=== PATIENT | female | born 1980 | race Caucasian/White ===

== ENCOUNTER 2016-10-10 17:26 | Emergency (ER) | payer OTHER ==
[~2016-10-10] VITALS: Ht 160 cm; Wt 99.0 kg
[2016-10-10 17:30] VITALS: PULSE 76; RESP 16; TEMP 98.5; O2SAT 98
[2016-10-10 18:22] LABS: BLOOD, URINE LARGE (NEG); GLUCOSE,URINE NEG (NEG); KETONE, URINE NEG (NEG); NITRITE,URINE NEG (NEG)
[2016-10-10] MEDS ORDERED: SODIUM CHLOR 0.9% 1000 ML INJ 1,000 ML IV SCH (18:46)
[2016-10-10 18:51] LABS: COMMENT (UR) CULT NOT INDICATED; CULTURE IF INDICATED CULT NOT INDICATED; METHOD OF COLLECTION VOIDED; SQUAMOUS EPITHELIAL CELL URINE 0-5 /hpf (0-5); URINE COLOR STRAW (YELLW/STRAW); WBC, URINE 0-2 /hpf (0-5)
[2016-10-10] MEDS ORDERED: ONDANSETRON HCL 4 MG/2 ML VIAL IVP ONE (19:00)
[2016-10-10] MEDS ORDERED: SODIUM CHLORIDE 0.9% FLUSH 5 ML FLUSH IVF PRN (19:00)
[2016-10-10] MEDS ORDERED: KETOROLAC TROMETHAMINE 30 MG/ML (IVP) VIAL IVP ONE (19:00)
[2016-10-10 19:20] LABS: AUTOMATED NEUTROPHIL # 6.1 TH/MM3 (1.8-7.7); BASOPHIL % 0.5 % (0.0-2.0); EOSINOPHIL # 0.1 TH/MM3 (0-0.4); EOSINOPHIL % 0.7 % (0.0-4.0); HEMATOCRIT 41.8 % (35.0-46.0); HEMO FLAGS DIFF FINAL; LYMPH % 22.3 % (9.0-44.0); MEAN CELL VOLUME 89.8 FL (80.0-100.0); MEAN CORPUSCULAR HEMOGLOBIN 30.7 PG (27.0-34.0); MEAN CORPUSCULAR HGB CONC 34.2 % (32.0-36.0); MONO % 8.2 % (0.0-8.0); NEUT % 68.3 % (16.0-70.0); PLATELET COUNT 271 TH/MM3 (150-450); RED BLOOD COUNT 4.65 MIL/MM3 (4.00-5.30); RED CELL DISTRIBUTION WIDTH 12.1 % (11.6-17.2); WHITE BLOOD COUNT 8.9 TH/MM3 (4.0-11.0)
[2016-10-10 19:34] LABS: CHLORIDE 105 MEQ/L (98-107); POTASSIUM 3.4 MEQ/L (3.5-5.1); SODIUM (NA) 141 MEQ/L (136-145)
[2016-10-10 19:37] LABS: ANION GAP 8 MEQ/L (5-15); BICARBONATE 27.9 MEQ/L (21.0-32.0)
[2016-10-10 19:38] LABS: BLOOD UREA NITROGEN 8 MG/DL (7-18)
[2016-10-10 19:40] LABS: ALT (GPT) 37 U/L (10-53); AST (GOT) 17 U/L (15-37)
[2016-10-10 19:41] LABS: GLOMERULAR FILTRATION RATE 76 ML/MIN (>89)
[2016-10-10 19:42] LABS: TOTAL BILIRUBIN ADULT 0.5 MG/DL (0.2-1.0)
[2016-10-10 19:43] LABS: ALKALINE PHOSPHATASE 57 U/L (45-117)
[2016-10-10] MEDS ORDERED: MORPHINE SULFATE 8 MG/ML INJ IV PUSH ONE (20:15)
[2016-10-10 20:45] VITALS: BP 144/77; PULSE 84; RESP 16; O2SAT 99
[2016-10-10] MEDS ORDERED: ZOFR4TAB3 SL (21:10)
[2016-10-10] MEDS ORDERED: HYDR-3366 PO (21:10)
[2016-10-10] MEDS ORDERED: TAMS5CAP PO (21:10)
--- NOTE | 2016-10-10 21:10 | PD ---
HPI Chief Complaint: Flank/Kidney Pain Time Seen by Provider: 18:40 Travel History International Travel<30 days: No Contact w/Intl Traveler<30days: No Traveled to known affect area: No History of Present Illness HPI Patient 36-year-old female presents with right flank pain radiating to her right lower quadrant as well as right groin. Patient states pain has been coming and going since yesterday not associated with fever. States mild dysuria. Denies any vaginal bleeding vaginal discharge. Endorses mild nausea without vomiting. States she has a history of kidney stones this. Her similar. Has tried ibuprofen at home without any significant relief. Denies ever having a kidney stone removed by surgical procedure before. PFSH Past Medical History Diminished Hearing: No Tetanus Vaccination: Unknown Influenza Vaccination: No ?: Not Tubal Ligation: Yes Past Surgical History Section: Yes Cholecystectomy: Yes Social History Alcohol Use: Yes (soc) Tobacco Use: Yes (10/07 PPD) Substance Use: No Allergies-Medications (Allergen,Severity, Reaction): Coded Allergies: Benadryl (Verified Allergy, Unknown, 10/10/16) Penicillin (Verified Allergy, Unknown, 10/10/16) Reported Meds & Prescriptions Reported Meds & Active Scripts Active Flomax (Tamsulosin HCl) 0.4 Mg Cap 0.4 Mg PO HS Zofran Odt (Ondansetron Odt) 4 Mg Tab 4 Mg SL Q8HR PRN Sprague (Hydrocodone-Acetaminophen) 10-325 Mg Tab 1 Tab PO Q6H PRN Review of Systems Except as stated in HPI: all other systems reviewed are Neg Physical Exam Narrative GENERAL: Well-developed well-nourished appears mildly uncomfortable but nontoxic. SKIN: Warm and dry. HEAD: Atraumatic. Normocephalic. EYES: Pupils equal and round. No scleral icterus. No injection or drainage. ENT: No nasal bleeding or discharge. Mucous membranes pink and moist. NECK: Trachea midline. No JVD. CARDIOVASCULAR: Regular rate and rhythm. No murmur appreciated. RESPIRATORY: No accessory muscle use. Clear to auscultation. Breath sounds equal bilaterally. GASTROINTESTINAL: Abdomen soft, non-tender, nondistended. Hepatic and splenic margins not palpable. No tenderness at McBurney's point. Luna sign negative. CVA testing on the left produces tenderness on the right. CVA testing on the right is deferred at this time. Patient offered gynecological exam declined. MUSCULOSKELETAL: No obvious deformities. No clubbing. No cyanosis. No edema. NEUROLOGICAL: Awake and alert. No obvious cranial nerve deficits. Motor grossly within normal limits. Normal speech. PSYCHIATRIC: Appropriate mood and affect; insight and judgment normal. Data Data Last Documented VS Vital Signs Date Time Temp Pulse Resp B/P Pulse Ox O2 Delivery O2 Flow Rate FiO2 10/10/16 21:33 74 16 147/72 100 10/10/16 20:45 Room Air 10/10/16 17:30 98.5 Orders Urinalysis - C+S If Indicated (10/10/16 17:55) Complete Blood Count With Diff (10/10/16 18:46) Comprehensive Metabolic Panel (10/10/16 18:46) Iv Access Insert/Monitor (10/10/16 18:46) Ecg Monitoring (10/10/16 18:46) Oximetry (10/10/16 18:46) Ondansetron Inj (Zofran Inj) (10/10/16 19:00) Sodium Chlor 0.9% 1000 Ml Inj (Ns 1000 M (10/10/16 18:46) Sodium Chloride 0.9% Flush (Ns Flush) (10/10/16 19:00) Ketorolac Inj (Toradol Inj) (10/10/16 19:00) Ed Poc Ultrasound (10/10/16 ) Ed Urine Pregnancytest Poc (10/10/16 20:02) Morphine Inj (Morphine Inj) (10/10/16 20:15) Labs Laboratory Tests Test 10/10/16 10/10/16 17:30 19:00 Urine Collection Type VOIDED Urine Color STRAW Urine Turbidity CLEAR Urine pH 6.0 Urine Specific [place] 1.010 Urine Protein NEG mg/dL Urine Glucose (UA) NEG mg/dL Urine Ketones NEG mg/dL Urine Occult Blood LARGE Urine Nitrite NEG Urine Bilirubin NEG Urine Leukocyte Esterase NEG Urine WBC 0-2 /hpf Urine Squamous Epithelial 0-5 /hpf Cells Microscopic Urinalysis Comment CULT NOT INDICATED White Blood Count 8.9 TH/MM3 Red Blood Count 4.65 MIL/MM3 Hemoglobin 14.3 GM/DL Hematocrit 41.8 % Mean Corpuscular Volume 89.8 FL Mean Corpuscular Hemoglobin 30.7 PG Mean Corpuscular Hemoglobin 34.2 % Concent Red Cell Distribution Width 12.1 % Platelet Count 271 TH/MM3 Mean Platelet Volume 8.1 FL Neutrophils (%) (Auto) 68.3 % Lymphocytes (%) (Auto) 22.3 % Monocytes (%) (Auto) 8.2 % Eosinophils (%) (Auto) 0.7 % Basophils (%) (Auto) 0.5 % Neutrophils # (Auto) 6.1 TH/MM3 Lymphocytes # (Auto) 2.0 TH/MM3 Monocytes # (Auto) 0.7 TH/MM3 Eosinophils # (Auto) 0.1 TH/MM3 Basophils # (Auto) 0.0 TH/MM3 CBC Comment DIFF FINAL Differential Comment Sodium Level 141 MEQ/L Potassium Level 3.4 MEQ/L Chloride Level 105 MEQ/L Carbon Dioxide Level 27.9 MEQ/L Anion Gap 8 MEQ/L Blood Urea Nitrogen 8 MG/DL Creatinine 0.86 MG/DL Estimat Glomerular Filtration 76 ML/MIN Rate Random Glucose 96 MG/DL Calcium Level 9.3 MG/DL Total Bilirubin 0.5 MG/DL Aspartate Amino Transf 17 U/L (AST/SGOT) Alanine Aminotransferase 37 U/L (ALT/SGPT) Alkaline Phosphatase 57 U/L Total Protein 7.6 GM/DL Albumin 4.1 GM/DL [facility] Medical Decision Making Medical Screen Exam Complete: Yes Emergency Medical Condition: Yes Differential Diagnosis Recurrent kidney stone, a KI, dysuria, UTI, cystitis, appendicitis highly unlikely by clinical exam. Narrative Course Patient with history of kidney stones and renal colic on right side. Discussed risks of repeat CT's and opts to defer at this time. No ISATU, no UTI. Minimal hydronephrosis. Felling better after Toradol blood pain returning. Morphine was added. After meds she is feeling much better. stable for discharge. Discussed symptom management and management home pain medication prescription as well as Flomax ordered. Follow-up with urology when necessary. Discussed return to ED criteria. Diagnosis Primary Impression: Renal colic on right side Referrals: Mic Stanford MD Med/Other Pt SpecificInfo: Prescription(s) given Scripts Tamsulosin (Flomax)0.4 Mg Cap0.4 Mg PO HS #30 CAP Ref 0 Prov:Marco Cristobal MD 10/10/16 Ondansetron Odt (Zofran Odt)4 Mg Tab4 Mg SL Q8HR PRN (Nausea/Vomiting) #30 TAB Ref 0 Prov:Marco Cristobal MD 10/10/16 Hydrocodone-Acetaminophen (Sprague)10-325 Mg Tab1 Tab PO Q6H PRN (PAIN) #12 TAB Ref 0 Prov:Marco Cristobal MD 10/10/16 Disposition: 01 DISCHARGE HOME Condition: Stable Marco Cristobal MD Oct 10, 2016 21:10
[2016-10-10 21:33] VITALS: BP 147/72
== END 2016-10-10 21:33 | disposition home or self-care (01) ==
LOC: PHED 17:26
DX: N23 Unspecified renal colic (principal); R30.0 Dysuria; F17.210 Nicotine dependence, cigarettes, uncomplicated; Z87.442 Personal history of urinary calculi
CPT/HCPCS: 80053; 81001; 85025; 96361; 96374; 96375; 99284; J1885; J2270; J2405; J7030

== ENCOUNTER 2017-05-06 09:59 | Emergency (ER) | payer OTHER ==
[~2017-05-06] VITALS: Ht 160 cm; Wt 96.0 kg
[~2017-05-06 09:59] MED LIST: HYDR-3366 PO; TAMS5CAP PO; ZOFR4TAB3 SL
[2017-05-06 10:03] VITALS: BP 237/116; PULSE 74; RESP 16; TEMP 98.2; O2SAT 98
[2017-05-06] MEDS ORDERED: ACETAMIN 325 MG/BUTALBITAL 50 MG/CAFFEINE 40 MG TAB PO ONE (10:30)
[2017-05-06] MEDS ORDERED: PROCHLORPERAZINE INJ 10 MG/2 ML VIAL IV PUSH ONE (10:30)
[2017-05-06 10:43] LABS: AUTOMATED NEUTROPHIL # 3.2 TH/MM3 (1.8-7.7); BASOPHIL # 0.1 TH/MM3 (0-0.2); BASOPHIL % 0.8 % (0.0-2.0); EOSINOPHIL # 0.1 TH/MM3 (0-0.4); EOSINOPHIL % 2.3 % (0.0-4.0); HEMATOCRIT 42.6 % (35.0-46.0); HEMO FLAGS DIFF FINAL; LYMPH % 40.2 % (9.0-44.0); LYMPHOCYTE # 2.5 TH/MM3 (1.0-4.8); MEAN CORPUSCULAR HEMOGLOBIN 30.6 PG (27.0-34.0); MONO % 7.1 % (0.0-8.0); NEUT % 49.6 % (16.0-70.0); PLATELET COUNT 249 TH/MM3 (150-450); RED BLOOD COUNT 4.73 MIL/MM3 (4.00-5.30); RED CELL DISTRIBUTION WIDTH 11.4 % (11.6-17.2); WHITE BLOOD COUNT 6.3 TH/MM3 (4.0-11.0)
[2017-05-06 10:54] LABS: CHLORIDE 105 MEQ/L (98-107); SODIUM (NA) 140 MEQ/L (136-145)
[2017-05-06 10:58] LABS: ANION GAP 8 MEQ/L (5-15); BICARBONATE 26.6 MEQ/L (21.0-32.0); BLOOD UREA NITROGEN 10 MG/DL (7-18)
[2017-05-06 11:01] LABS: ALT (GPT) 34 U/L (10-53); AST (GOT) 24 U/L (15-37); GLOMERULAR FILTRATION RATE 85 ML/MIN (>89)
[2017-05-06 11:02] LABS: TOTAL BILIRUBIN ADULT 0.4 MG/DL (0.2-1.0)
[2017-05-06 11:04] LABS: ALKALINE PHOSPHATASE 56 U/L (45-117)
[2017-05-06 11:08] VITALS: BP 177/99; PULSE 69; RESP 18; O2SAT 97
--- NOTE | 2017-05-06 11:57 | PD ---
HPI Chief Complaint: Headache Time Seen by Provider: 10:08 Travel History International Travel<30 days: No Contact w/Intl Traveler<30days: No Traveled to known affect area: No History of Present Illness HPI Patient is a 36-year-old female who comes in complaining of headache with congestion. She says this is going going on since Thursday with fever on and off. She did say she had a fever of 100.5 this morning and took ibuprofen. She says that she has been taking her blood pressure since Thursday and is concerned because it is high. She has a history of high blood pressure, and has not been on medications for the past year. She denies any trauma to her head. She denies any chest pain or shortness of breath. She denies abdominal pain. She occasionally gets some blurry vision with the headaches. She's had some nausea, but no vomiting. PFSH Past Medical History Diminished Hearing: No Hypertension: Yes ?: Not LMP: 03/11/2017 Tubal Ligation: Yes Past Surgical History Section: Yes Cholecystectomy: Yes Social History Alcohol Use: Yes (soc) Tobacco Use: No Substance Use: No Allergies-Medications (Allergen,Severity, Reaction): Coded Allergies: Benadryl (Verified Allergy, Unknown, 05/06/17) Penicillin (Verified Allergy, Unknown, 05/06/17) Reported Meds & Prescriptions Reported Meds & Active Scripts Active No Active Prescriptions or Reported Medications Review of Systems Except as stated in HPI: all other systems reviewed are Neg General / Constitutional: Positive: Fever, No: Chills Eyes: Positive: Blurred Vision HENT: Positive: Headaches, Congestion Cardiovascular: No: Chest Pain or Discomfort Respiratory: No: Shortness of Breath Gastrointestinal: Positive: Nausea, No: Vomiting Genitourinary: No: Dysuria, Flank Pain Musculoskeletal: No: Edema, Pain Skin: No Rash, No Change in Pigmentation Neurologic: No: Weakness, Paresthesia, Sensory Disturbance Physical Exam Narrative GENERAL: Awake and alert, in no acute distress. SKIN: Focused skin assessment warm/dry. HEAD: Atraumatic. Normocephalic. EYES: Pupils equal and round. No scleral icterus. ENT: Mucous membranes pink and moist. NECK: Trachea midline. No JVD. CARDIOVASCULAR: Regular rate and rhythm. No murmur appreciated. RESPIRATORY: No accessory muscle use. Clear to auscultation. Breath sounds equal bilaterally. GASTROINTESTINAL: Abdomen soft, non-tender, nondistended. MUSCULOSKELETAL: No obvious deformities. No clubbing. No cyanosis. No edema. NEUROLOGICAL: Awake and alert. No obvious cranial nerve deficits. Motor grossly within normal limits. Normal speech. Normal cerebellar function testing. Kmfjre-pdrf-qmkhln test is within normal limits. PSYCHIATRIC: Appropriate mood and affect; insight and judgment normal. Data Data Last Documented VS Vital Signs Date Time Temp Pulse Resp B/P Pulse Ox O2 Delivery O2 Flow Rate FiO2 05/06/17 12:06 68 18 190/90 95 05/06/17 10:03 98.2 Orders Iv Access Insert/Monitor (05/06/17 10:24) Complete Blood Count With Diff (05/06/17 10:24) Comprehensive Metabolic Panel (05/06/17 10:24) Troponin I (05/06/17 10:24) Electrocardiogram (05/06/17 ) Ct Brain W/O Iv Contrast(Rout) (05/06/17 ) Prochlorperazine Inj (Compazine Inj) (05/06/17 10:30) Chest, Pa & Lat (05/06/17 ) Rkcl-Ypuyu-Qpur 325-50-40 Mg (Fioricet 3 (05/06/17 10:30) Labs Laboratory Tests Test 05/06/17 10:35 White Blood Count 6.3 TH/MM3 Red Blood Count 4.73 MIL/MM3 Hemoglobin 14.5 GM/DL Hematocrit 42.6 % Mean Corpuscular Volume 90.0 FL Mean Corpuscular Hemoglobin 30.6 PG Mean Corpuscular Hemoglobin 34.0 % Concent Red Cell Distribution Width 11.4 % Platelet Count 249 TH/MM3 Mean Platelet Volume 8.0 FL Neutrophils (%) (Auto) 49.6 % Lymphocytes (%) (Auto) 40.2 % Monocytes (%) (Auto) 7.1 % Eosinophils (%) (Auto) 2.3 % Basophils (%) (Auto) 0.8 % Neutrophils # (Auto) 3.2 TH/MM3 Lymphocytes # (Auto) 2.5 TH/MM3 Monocytes # (Auto) 0.4 TH/MM3 Eosinophils # (Auto) 0.1 TH/MM3 Basophils # (Auto) 0.1 TH/MM3 CBC Comment DIFF FINAL Differential Comment Sodium Level 140 MEQ/L Potassium Level 4.0 MEQ/L Chloride Level 105 MEQ/L Carbon Dioxide Level 26.6 MEQ/L Anion Gap 8 MEQ/L Blood Urea Nitrogen 10 MG/DL Creatinine 0.78 MG/DL Estimat Glomerular Filtration 85 ML/MIN Rate Random Glucose 116 MG/DL Calcium Level 9.6 MG/DL Total Bilirubin 0.4 MG/DL Aspartate Amino Transf 24 U/L (AST/SGOT) Alanine Aminotransferase 34 U/L (ALT/SGPT) Alkaline Phosphatase 56 U/L Troponin I LESS THAN 0.02 NG/ML Total Protein 8.0 GM/DL Albumin 4.0 GM/DL [facility] Medical Decision Making Medical Screen Exam Complete: Yes Emergency Medical Condition: Yes Medical Record Reviewed: Yes Interpretation(s) ECG shows normal sinus rhythm at 66, no ST elevation or depression. Normal intervals. Differential Diagnosis Tension headache versus viral illness versus hypertensive urgency Narrative Course Patient is a 36-year-old female who comes in complaining of headache, congestion , blood pressure. Exam shows no neurologic abnormalities. IV established, labs sent. Labs show no acute abnormalities. Creatinine is within normal limits. Troponin is negative. Chest x-ray shows no acute abnormalities. CT head shows no acute abnormalities. Patient was given Compazine as well as Fioricet. She says overall she is feeling better. She does have symptoms of akathisia however. She is allergic to Benadryl, but says she is tolerating the symptoms at this time. She'll be discharged with a prescription for Fioricet. She is advised follow- up with her doctor to get back on her blood pressure medications. Advised to return to the ED as needed for any worsening symptoms. Diagnosis Primary Impression: Headache Qualified Code: R51 - Acute nonintractable headache, unspecified headache type Additional Impression: Viral illness Patient Instructions: Acute Headache (ED), General Instructions, Viral Syndrome (ED) Additional Instructions: Take ibuprofen as needed for pain. He can take Fioricet for severe headaches. Make sure he drinks plenty of fluids. Follow-up with her doctor regarding her blood pressure. Return to the emergency department as needed for any worsening symptoms. Scripts Ivbbwqvrne-Xmbxhrlhntfxz-Vrflqrhl (Fioricet)50-300-40 Mg Cap1 Cap PO Q4H PRN ( HEADACHE) #15 CAP Ref 0 Prov:Catherine Tobin MD 05/06/17 Disposition: 01 DISCHARGE HOME Condition: Stable Catherine Tobin MD May 06, 2017 11:57
[2017-05-06 12:06] VITALS: BP 190/90; PULSE 68; RESP 18; O2SAT 95
--- NOTE | 2017-05-06 12:06 | RADRPT ---
EXAM DATE/TIME: 05/06/2017 11:11 [facility] COMPARISON: No previous studies available for comparison. INDICATIONS : Cephalgia. RADIATION DOSE: 65.20 CTDIvol (mGy) MEDICAL HISTORY : Hypertension. SURGICAL HISTORY : Cholecystectomy. Tubal ligation. section. ENCOUNTER: Initial ACUITY: 4 - 6 days PAIN SCALE: 3/10 LOCATION: cranial TECHNIQUE: Multiple contiguous axial images were obtained of the head. Using automated exposure control and adj ustment of the mA and/or kV according to patient size, radiation dose was kept as low as reasonably a chievable to obtain optimal diagnostic quality images. DICOM format image data is available electro nically for review and comparison. FINDINGS: CEREBRUM: The ventricles are normal for age. No evidence of midline shift, mass lesion, hemorrhage or acute in farction. No extra-axial fluid collections are seen. POSTERIOR FOSSA: The cerebellum and brainstem are intact. The 4th ventricle is midline. The cerebellopontine angle i s unremarkable. EXTRACRANIAL: The visualized portion of the orbits is intact. SKULL: The calvaria is intact. No evidence of skull fracture. CONCLUSION: No acute disease. Craig Rivera MD FACR on May 06, 2017 at 12:04 Board Certified Radiologist. This report was verified electronically.
--- NOTE | 2017-05-06 12:26 | RADRPT ---
EXAM DATE/TIME: 05/06/2017 10:50 [facility] COMPARISON: No previous studies available for comparison. INDICATIONS : Cough, congestion, fever, migranes. MEDICAL HISTORY : Hypertension. SURGICAL HISTORY : Tubal ligation. Cholecystectomy. section. ENCOUNTER: Initial ACUITY: 2 days PAIN SCORE: 0/10 LOCATION: chest FINDINGS: PA and lateral views of the chest demonstrate the lungs to be symmetrically aerated without evidence of mass, infiltrate or effusion. The cardiomediastinal contours are unremarkable. Osseous structure s are intact. CONCLUSION: 1. No acute cardiopulmonary disease. Sidney Bishop MD on May 06, 2017 at 12:22 Board Certified Radiologist. This report was verified electronically.
[2017-05-06] MEDS ORDERED: BUTA1CAP PO (12:32)
--- NOTE | 2017-05-07 18:18 | EKG ---
Date Performed: 05/06/2017 Time Performed: 10:33:08 PTAGE: 36 years EKG: Sinus rhythm NORMAL ECG NO PREVIOUS TRACING DOCTOR: Kathryn Quiroz Interpretating Date/Time 05/07/2017 18:18:16
== END 2017-05-06 12:46 | disposition home or self-care (01) ==
LOC: PHED 09:59
DX: R51 Headache (principal); B34.9 Viral infection, unspecified; I10 Essential (primary) hypertension
CPT/HCPCS: 70450; 71020; 80053; 84484; 85025; 93005; 96374; 99285; J0780

== ENCOUNTER 2017-10-02 10:12 | Emergency (ER) | payer OTHER ==
[~2017-10-02] VITALS: Ht 160 cm; Wt 94.0 kg
[~2017-10-02 10:12] MED LIST changes: +BUTA1CAP PO; -HYDR-3366 PO; -TAMS5CAP PO; -ZOFR4TAB3 SL
[2017-10-02 10:13] VITALS: BP 174/100; PULSE 102; RESP 18; TEMP 98.4; O2SAT 98
[2017-10-02] MEDS ORDERED: HYDROCHLOROTHIAZIDE 25 MG TAB PO ONE (10:30)
[2017-10-02] MEDS ORDERED: HYDR25TA5 PO (10:30)
[2017-10-02] MEDS ORDERED: SODIUM CHLORID 0.9% 500 ML INJ 500 ML IV ONE (10:30)
[2017-10-02] MEDS ORDERED: ONDANSETRON HCL 4 MG/2 ML VIAL IV PUSH ONE (10:30)
--- NOTE | 2017-10-02 10:32 | PD ---
HPI Chief Complaint: GI Complaint Time Seen by Provider: 10:18 Travel History International Travel<30 days: No Contact w/Intl Traveler<30days: No Traveled to known affect area: No History of Present Illness HPI 37-year-old female notes 1 week history of nausea and diarrhea. She states she had vomiting but that resolved. She states she ran out of her Zofran and so she is having difficulty taking her blood pressure medication She just feels so nauseous. She went to an urgent care and was sent here. She denies any specific fever or other concurrent complaints. Quality is nonbloody. Severity is about 10 episodes or so a day of diarrhea. She denies any travel outside the country. She denies any antibiotic use. She states she feels worse when she eats and doesn't really have an appetite. PFSH Past Medical History Diminished Hearing: No Hypertension: Yes ?: Not Tubal Ligation: Yes Past Surgical History Section: Yes Cholecystectomy: Yes Social History Alcohol Use: Yes (soc) Tobacco Use: No Substance Use: No Allergies-Medications (Allergen,Severity, Reaction): Coded Allergies: diphenhydramine (Unverified Allergy, Unknown, RASH, 10/02/17) penicillin G (Unverified Allergy, Unknown, THROAT SWELLING, 10/02/17) Uncoded Allergies: PEROXIDE (Allergy, Severe, RASH, 10/02/17) Reported Meds & Prescriptions Reported Meds & Active Scripts Active Reported Hydrochlorothiazide 25 Mg Tab 25 Mg PO DAILY Review of Systems Except as stated in HPI: all other systems reviewed are Neg Physical Exam Narrative GENERAL: Well-nourished, well-developed patient. SKIN: Warm and dry. HEAD: Normocephalic and atraumatic. EYES: No injection or drainage. ENT: No nasal drainage noted. NECK: Supple, trachea midline. CARDIOVASCULAR: Regular rate and rhythm RESPIRATORY: No increased effort. No accessory muscle use. GASTROINTESTINAL: Abdomen soft, non-tender, nondistended. EXTREMITIES: No edema. NEUROLOGICAL: Awake and alert. Motor and sensory grossly within normal limits. Normal speech. Data Data Last Documented VS Vital Signs Date Time Temp Pulse Resp B/P (MAP) Pulse Ox O2 Delivery O2 Flow Rate FiO2 10/02/17 10:13 98.4 102 18 174/100 (124) 98 Orders Orders Complete Blood Count With Diff (10/02/17 10:26) Basic Metabolic Panel (Bmp) (10/02/17 10:26) Iv Access Insert/Monitor (10/02/17 10:26) Sodium Chlorid 0.9% 500 Ml Inj (Ns 500 M (10/02/17 10:30) Ondansetron Inj (Zofran Inj) (10/02/17 10:30) Hydrochlorothiazide (Hydrodiuril) (10/02/17 10:30) Potassium Chloride (Kcl) (10/02/17 11:15) Ed Discharge Order (10/02/17 11:37) Labs Laboratory Tests Test 10/02/17 10:38 White Blood Count 10.2 TH/MM3 Red Blood Count 4.91 MIL/MM3 Hemoglobin 14.7 GM/DL Hematocrit 44.5 % Mean Corpuscular Volume 90.8 FL Mean Corpuscular Hemoglobin 29.9 PG Mean Corpuscular Hemoglobin Concent 33.0 % Red Cell Distribution Width 11.8 % Platelet Count 254 TH/MM3 Mean Platelet Volume 7.7 FL Neutrophils (%) (Auto) 73.7 % Lymphocytes (%) (Auto) 16.1 % Monocytes (%) (Auto) 8.2 % Eosinophils (%) (Auto) 1.2 % Basophils (%) (Auto) 0.8 % Neutrophils # (Auto) 7.6 TH/MM3 Lymphocytes # (Auto) 1.6 TH/MM3 Monocytes # (Auto) 0.8 TH/MM3 Eosinophils # (Auto) 0.1 TH/MM3 Basophils # (Auto) 0.1 TH/MM3 CBC Comment DIFF FINAL Differential Comment Blood Urea Nitrogen 9 MG/DL Creatinine 0.64 MG/DL Random Glucose 118 MG/DL Calcium Level 8.6 MG/DL Sodium Level 137 MEQ/L Potassium Level 3.1 MEQ/L Chloride Level 106 MEQ/L Carbon Dioxide Level 22.3 MEQ/L Anion Gap 9 MEQ/L Estimat Glomerular Filtration Rate 106 ML/MIN [facility] Medical Decision Making Medical Screen Exam Complete: Yes Emergency Medical Condition: Yes Medical Record Reviewed: Yes (past history confirmed) Interpretation(s) CBC & BMP Diagram 10/02/17 10:38 Calcium Level 8.6 Differential Diagnosis Gastroenteritis, electrolyte deficiency, colitis Narrative Course Will check lab work given 1 week duration and dose with Zofran, IV fluids and her home blood pressure medication and reevaluate no emesis here, tolerate potassium replacement and took bp medication, Patient denies any new complaints and states that they are feeling better. Patient happy with care, all questions answered. Patient knows that follow up is incumbent on them and to return to the emergency room immediately if new or worsening symptoms develop. Patient given strict return precautions, vitals reviewed and are normal, agrees to further workup as an outpatient. Diagnosis Primary Impression: Diarrhea Qualified Codes: R19.7 - Diarrhea, unspecified Additional Impression: Hypokalemia Patient Instructions: General Instructions Departure Forms: Tests/Procedures, Work Release Enter return to work date: Oct 05, 2017 Additional Instructions: follow with primary thursday, return as needed, zofran as needed, keep blood pressure log Med/Other Pt SpecificInfo: Prescription(s) given Scripts Ondansetron Odt (Zofran Odt) 4 Mg Tab 4 MG SL Q6HR Y for Nausea/Vomiting, #15 TAB 0 Refills Prov: Estrellita Pineda MD 10/02/17 Disposition: 01 DISCHARGE HOME Condition: Stable Estrellita Pineda MD Oct 02, 2017 10:32
[2017-10-02 10:44] LABS: AUTOMATED NEUTROPHIL # 7.6 TH/MM3 (1.8-7.7); BASOPHIL # 0.1 TH/MM3 (0-0.2); BASOPHIL % 0.8 % (0.0-2.0); EOSINOPHIL # 0.1 TH/MM3 (0-0.4); EOSINOPHIL % 1.2 % (0.0-4.0); HEMATOCRIT 44.5 % (35.0-46.0); HEMOGLOBIN 14.7 GM/DL (11.6-15.3); LYMPH % 16.1 % (9.0-44.0); LYMPHOCYTE # 1.6 TH/MM3 (1.0-4.8); MEAN CELL VOLUME 90.8 FL (80.0-100.0); MEAN CORPUSCULAR HEMOGLOBIN 29.9 PG (27.0-34.0); MEAN PLATELET VOLUME 7.7 FL (7.0-11.0); MONO % 8.2 % (0.0-8.0); MONOCYTE # 0.8 TH/MM3 (0-0.9); NEUT % 73.7 % (16.0-70.0); PLATELET COUNT 254 TH/MM3 (150-450); RED BLOOD COUNT 4.91 MIL/MM3 (4.00-5.30); RED CELL DISTRIBUTION WIDTH 11.8 % (11.6-17.2); WHITE BLOOD COUNT 10.2 TH/MM3 (4.0-11.0)
[2017-10-02 10:53] LABS: BICARBONATE 22.3 MEQ/L (21.0-32.0); CALCIUM 8.6 MG/DL (8.5-10.1)
[2017-10-02 10:57] LABS: CREATININE 0.64 MG/DL (0.50-1.00)
[2017-10-02] MEDS ORDERED: POTASSIUM CHLORIDE 20 MEQ CONTROLLED RELEASE TAB PO ONE (11:15)
[2017-10-02] MEDS ORDERED: ZOFR4TAB3 SL (11:39)
[2017-10-02 11:48] VITALS: BP 137/79; PULSE 75; RESP 16; O2SAT 96
== END 2017-10-02 12:09 | disposition home or self-care (01) ==
LOC: PHED 10:12
DX: R19.7 Diarrhea, unspecified (principal); E87.6 Hypokalemia; I10 Essential (primary) hypertension
CPT/HCPCS: 80048; 85025; 96374; 99284; J2405; J7040